=== PATIENT | female | born 1950 | race Caucasian/White ===

== ENCOUNTER 2024-12-17 11:09 | Emergency (ER) | payer OTHER, MEDICARE ==
[~2024-12-17] VITALS: Ht 152.4 cm; Wt 69.0 kg
[2024-12-17 11:20] VITALS: TEMP 36.8; O2SAT 100
[2024-12-17] MEDS: IBUPROFEN 600MG TABLET PO ONE (14:24)
[2024-12-17] MEDS ORDERED: CYCL5TAB3 MT (14:42)
[2024-12-17] MEDS ORDERED: IBUP-1455 MT (14:42)
[2024-12-17 15:42] VITALS: BP 117/67; PULSE 71; RESP 18; O2SAT 98
== END 2024-12-17 15:50 | disposition home or self-care (01) ==
LOC: ER 11:09
DX: S60.222A Contusion of left hand, initial encounter (principal); S50.12XA Contusion of left forearm, initial encounter; S80.12XA Contusion of left lower leg, initial encounter; S20.219A Contusion of unspecified front wall of thorax, initial encounter; Z98.890 Other specified postprocedural states; V89.2XXA Person injured in unspecified motor-vehicle accident, traffic, initial encounter; Y93.89 Activity, other specified; Y92.410 Unspecified street and highway as the place of occurrence of the external cause; Y99.8 Other external cause status
CPT/HCPCS: 71045; 73090; 73130; 99284